=== PATIENT | male | born 1955 | race African-American/Black ===

== ENCOUNTER 2022-02-03 12:56 | Inpatient (IN) | payer BC ==
[~2022-02-03] VITALS: Ht 188 cm; Wt 46.7 kg
[2022-02-03 13:04] VITALS: BP 138/76
[2022-02-03] MEDS ORDERED: PANTOPRAZOLE 40 MG INJ VIAL IVP ONE (13:25)
[2022-02-03] MEDS ORDERED: NACL 0.9% 250 ML IV ONE (13:25)
[2022-02-03] MEDS ORDERED: ONDANSETRON 4 MG/2 ML VIAL IVP ONE (13:25)
--- NOTE | 2022-02-03 13:52 | NUR ---
XRAY AT BEDSIDE
[2022-02-03] MEDS ORDERED: HYDROmorphone PFS 2 MG/ML SYR IVP ONE ×2 (14:00→15:15)
--- NOTE | 2022-02-03 14:00 | NUR ---
66/M DELIA FROM [facility]. PER EMS STAFF CALLED 911 STATING PATIENT HAD ONE EPISODE OF HEMATEMESIS. PATIENT STATES HE HAS HAD SIMILAR EPISODES IN THE PAST D/T HIS HX OF LUNG CANCER. PATIENT ALSO C/O 5/10 CP D/T CHRONIC COUGH, PER EMS PATIENT RECEIVED DILAUDID AT 1230 MANAGER BEVERAGE, PATIENT DENIES NAUSEA AT THIS TIME. PMH: LUNG CANCER, HTN, GERD NKA
[2022-02-03 14:15] LABS: BASOPHILS # (AUTO) 0.1 K/uL (0.00-0.22); BASOPHILS % (AUTO) 0.5 % (0.0-2.0); EOSINOPHILS # (AUTO) 0.1 K/uL (0-0.4); EOSINOPHILS % (AUTO) 0.6 % (0.0-4.0); HEMATOCRIT 34.5 % (36-52); HEMOGLOBIN 11.3 g/dL (12.0-18.0); LYMPHOCYTES # (AUTO) 1.6 K/uL (2.0-11.5); LYMPHOCYTES % (AUTO) 12.3 % (20.5-51.1); MEAN CORPUSCULAR HEMOGLOBIN 30 pg (27-31); MEAN CORPUSCULAR HGB CONC 33 g/dL (33-37); MEAN CORPUSCULAR VOLUME 91.3 fL (80-94); MONOCYTES # (AUTO) 1.5 K/uL (0.8-1.0); MONOCYTES % (AUTO) 11.8 % (1.7-9.3); NEUTROPHILS # (AUTO) 9.5 K/uL (1.8-7.7); NEUTROPHILS % (AUTO) 74.8 % (42.2-75.2); PLATELET COUNT (AUTO) 416 K/uL (140-450); RED BLOOD CELL COUNT(AUTO) 3.78 MIL/uL (4.20-6.10); RED CELL DISTRIBUTION WIDTH 14.1 % (11.6-13.7); WHITE BLOOD COUNT (AUTO) 12.8 K/uL (4.8-10.8)
[2022-02-03 14:28] LABS: PROTHROMBIN TIME 13.3 secs (10.8-13.4)
--- NOTE | 2022-02-03 14:38 | NUR ---
PT IN BED ASLEEP, HOB ELEVATED
[2022-02-03 14:44] LABS: ALBUMIN 2.8 g/dL (3.4-5.0); ANION GAP 10.8 (8-16); CARBON DIOXIDE 37.2 mmol/L (21-32); CREATININE 0.8 mg/dL (0.6-1.3); TOTAL BILIRUBIN 0.7 mg/dL (0.0-1.0)
[2022-02-03] MEDS ORDERED: PIPERACILLIN/TAZOBACTAM 3.375 GM in DEXTROSE 5% 50 ML IV ONE (15:20)
[2022-02-03] MEDS ORDERED: NACL 0.9% 1,200 ML IV ONE (15:20)
[2022-02-03] MEDS ORDERED: VANCOMYCIN 1,000 MG in DEXTROSE 5% 250 ML IV ONE (15:20)
[2022-02-03] MEDS ORDERED: PIPERACILLIN/TAZOBACTAM 3.375 GM VIAL IV ONE (15:31)
[2022-02-03] MEDS ORDERED: VANCOMYCIN 1,000 MG VIAL ONE (15:31)
[2022-02-03] MEDS ORDERED: DEXA4TAB5 PO (16:49)
[2022-02-03] MEDS ORDERED: ZOLPIDEM 10 MG TAB PO PRN (16:55)
[2022-02-03] MEDS ORDERED: DOCUSATE SODIUM 100 MG GELCAP PO PRN (16:55)
[2022-02-03] MEDS ORDERED: ACETAMINOPHEN 325 MG TAB PO PRN (16:55)
[2022-02-03] MEDS ORDERED: ONDANSETRON 4 MG/2 ML VIAL IVP PRN (16:55)
[2022-02-03] MEDS ORDERED: DOCU-299 PO (17:08)
[2022-02-03] MEDS ORDERED: ACET-2619 PO (17:08)
[2022-02-03] MEDS ORDERED: LOSA100T1 PO (17:08)
[2022-02-03] MEDS ORDERED: HYDR-3004 PO (17:08)
[2022-02-03] MEDS ORDERED: CARV6.25 PO (17:08)
[2022-02-03] MEDS ORDERED: LACT500C2 PO (17:08)
[2022-02-03] MEDS ORDERED: CLON0.1T16 PO (17:08)
[2022-02-03] MEDS ORDERED: PANT40EC PO (17:08)
[2022-02-03] MEDS ORDERED: ACET-5636 PO (17:08)
[2022-02-03] MEDS ORDERED: MAGN400S60 PO (17:08)
[2022-02-03] MEDS ORDERED: PROM118S5 PO (17:08)
[2022-02-03] MEDS ORDERED: HYDR-1098 PO (17:08)
[2022-02-03] MEDS ORDERED: HYDR2TAB6 PO (17:08)
[2022-02-03] MEDS ORDERED: BISA-218 RC (17:08)
[2022-02-03] MEDS: POTASSIUM CHLORIDE 10 MEQ TABER PO PRN (18:18)
[2022-02-03] MEDS: LORazepam 2 MG/ML VIAL IVP PRN (18:19)
--- NOTE | 2022-02-03 19:14 | NUR ---
DR LIGHT AT BEDSIDE
--- NOTE | 2022-02-03 19:30 | NUR ---
Pt report given to ALBERTO BANDA. Transfer of care at this time.
[2022-02-03] MEDS: PIPERACILLIN/TAZOBACTAM 3.375 GM in DEXTROSE 5% 50 ML IV SCH (21:00)
--- NOTE | 2022-02-04 01:22 | NUR ---
Patient will be admitted to care of Dr. Seaman. Admited to TELE. Will go to room 124A. Belongings list completed. Report to SOLO Saleem.
--- NOTE | 2022-02-04 01:30 | NUR ---
RECEIVED PT FROM ER/ [facility] AAOX 1 TO 2 , NID ,W/ O2 AT 2LPM/NC - O2 SAT 96 % , IV SITES INTACT AND PATENT , TRANSFER TO BED THRU MANUAL LIFT , ON TELE MONITOR - ST , , AFEBRILE , PT WEARING DIAPER , BUT HE CAN ABLE TO PEE ON URINAL WHEN URINAL OFFERRED AND ASSISTED . ADMISSION ASSESSMENT DONE , PLAN OF CARE DISCUSSED BUT POOR UNDERSTANDING DUE TO MENTAL STATUS . FALL RISK - PUT PT ON FALL PREVENTION PROTOCOL - CALL LIGHT WITHIN REACH . BED ALARM ON , WILL CONT. TO MONITOR .
[2022-02-04 01:50] VITALS: BP 110/54
--- NOTE | 2022-02-04 02:00 | NUR ---
SLEEPING , O2 SAT WNL
--- NOTE | 2022-02-04 02:16 | NUR ---
PT WAS TRANSFERRED TO TELE ROM 124A, STABLE VSS/ CONFUSED, NO ACTIVE BLEEDING AND NO HEMATEMESIS.
[2022-02-04 03:34] LABS: APPEARANCE,URINE SL CLOUDY (CLEAR); BILIRUBIN,URINE NEGATIVE (NEGATIVE); BLOOD, URINE TRACE-L (NEGATIVE); COLOR,URINE YELLOW (YELLOW); LEUKOCYTE ESTERASE ,URINE TRACE (NEGATIVE); NITRITE, URINE POSITIVE (NEGATIVE); UGLUCOSE NEGATIVE (NEGATIVE)
[2022-02-04 03:58] LABS: BARBITURATE, URINE NEGATIVE ng/ml (NEG <=200); BENZODIAZEPINE, URINE POSITIVE ng/mL (NEG <=200); CANNABINOID, URINE NEGATIVE ng/mL (NEG <=50); COCAINE, URINE NEGATIVE ng/mL (NEG <=300)
[2022-02-04 04:00] VITALS: BP 113/60
[2022-02-04 04:00] LABS: OPIATE, URINE POSITIVE ng/mL (NEG <=2000); PHENCYCLIDINE SCREEN,URINE NEGATIVE ng/mL (NEG <=25)
--- NOTE | 2022-02-04 04:00 | NUR ---
ROUNDS , NO S/SX OF ACUTE DISTRES NOTED
--- NOTE | 2022-02-04 06:00 | NUR ---
AWAKE , NO S/SX OF ACUTE DISTRESS NOTED
[2022-02-04] MEDS ORDERED: PIPERACILLIN/TAZOBACTAM 3.375 GM VIAL IV ONE (06:12)
[2022-02-04] MEDS: PIPERACILLIN/TAZOBACTAM 3.375 GM in DEXTROSE 5% 50 ML IV SCH ×3 (06:50→21:00)
--- NOTE | 2022-02-04 07:00 | NUR ---
RELAYED URINALYSIS RSULT TO DR. LIGHT - PT - NPO - VERIFIED NPO TO DR. MEDRANO , PER DR. LIGHT INFORM DR. ARANDA ABOUT THE REFERRAL . I ENDORSED TO TRISTEN DON'T FORGET TO PAGE DR. ARANDA - TRISTEN , RN VERBALIZES UNDERSTANDING .
[2022-02-04 07:28] LABS: ANION GAP 9.8 (8-16); CARBON DIOXIDE 35.1 mmol/L (21-32); CREATININE 0.7 mg/dL (0.6-1.3)
--- NOTE | 2022-02-04 07:28 | NUR ---
ENDORSED - PT - STABLE . NPO , BED ALARM ON
--- NOTE | 2022-02-04 07:28 | NUR ---
RECEIVED BEDSIDE REPORT FROM SONIA MEAD RN FOR CONTINUITY OF CARE. PT LYING IN THE BED, AAOX2, FORGETFUL. ON 2L NC, NO S/S RESPIRATORY DISTRESS. ST ON TELEMONITOR HR 110. PERIPHERAL IVS TO L AC 20G, AND L H 20G, SALINE LOCK, PATENT, INTACT. BOWEL SOUNDS ACTIVE LAST BM TODAY AM. INCONTINENT OF BOWEL SOMETIMES BLADDER, USES URINAL AT BEDSIDE SOMETIMES. GENERALIZED WEAKNESS TO BUE BLE. SKIN INTACT. SAFETY PRECAUTIONS MET. ON STANDARD ISOLATION. CALL LIGTH WITHIN REACH. INITIAL ASSESSMENT COMPLETE, WILL CONTINUE TO MONITOR.
[2022-02-04 07:29] LABS: HEMATOCRIT 31.2 % (36-52); HEMOGLOBIN 10.3 g/dL (12.0-18.0); MEAN CORPUSCULAR HEMOGLOBIN 30 pg (27-31); MEAN CORPUSCULAR HGB CONC 33 g/dL (33-37); MEAN CORPUSCULAR VOLUME 90.4 fL (80-94); PLATELET COUNT (AUTO) 416 K/uL (140-450); RED BLOOD CELL COUNT(AUTO) 3.45 MIL/uL (4.20-6.10); WHITE BLOOD COUNT (AUTO) 17.1 K/uL (4.8-10.8)
[2022-02-04 07:58] LABS: POTASSIUM 2.9 mmol/L (3.5-5.1)
[2022-02-04 08:00] VITALS: BP 114/55
[2022-02-04] MEDS ORDERED: VANCOMYCIN PER PHARMACY MC PRN (08:25)
[2022-02-04 08:53] LABS: OTHER CASTS, URINE None Seen /LPF (None Seen)
[2022-02-04] MEDS: MAG SULF 2000 MG/WATER PREMIX 50 ML IV PRN (09:12)
[2022-02-04] MEDS: SENNA 8.6 MG TAB PO SCH ×3 (09:13→16:38)
[2022-02-04] MEDS: PANTOPRAZOLE 40 MG INJ VIAL IVP SCH (09:13)
[2022-02-04] MEDS ORDERED: POTASSIUM CHLORIDE 40 MEQ, LIDOCAINE MPF 1% 25 MG in NACL 0.9% 250 ML IV SCH (10:00)
[2022-02-04 10:07] LABS: LYMPHOCYTES % (MANUAL) 5 % (20-46); MONOCYTES % (MANUAL) 12 % (5-12)
[2022-02-04 12:00] VITALS: BP 130/61
[2022-02-04] MEDS: MORPHINE SULFATE 2 MG/ML SYR IVP PRN (13:02)
--- NOTE | 2022-02-04 13:22 | NUR ---
PATIENT HAS BEEN SCREENED AND CATEGORIZED LOW NUTRITION RISK. PATIENT WILL BE SEEN WITHIN 7 DAYS OF ADMISSION. 02/10/22 PT WEIGHT [address] VISIT, BMI 21.8 KG/M2 (APPROPRIATE) PELON HO RD Addendum: 02/06/22 at [address] FNS CONSULT HAS BEEN RECEIVED FOR DIET EDUCATION; NOT APPLICABLE PELON HO RD
--- NOTE | 2022-02-04 14:55 | NUR ---
CALLED DR. LIGHT AT [facility] [phone]; PMHX: LUNG CA, THYROID CA, HTN; Davi HIDALGO RCP CALLED TO BEDSIDE; PATIENT PRESENTING WITH INCREASED SOB BREATH SOUNDS EXPIRATORY WHEEZE BILATERAL; RR 18-20; SUPPLEMENTAL OXYGEN AT 2LPM VIA NC SATURATION 97% TORBO DR. LIGHT: DUONEB Q6PRN FOR SOB/WHEEZE
[2022-02-04] MEDS ORDERED: ALBUTEROL SULFATE/IPRATROPIU 3 ML SOL IH ONE (15:15)
[2022-02-04 16:00] VITALS: BP 124/70
[2022-02-04] MEDS: VANCOMYCIN 1,000 MG in DEXTROSE 5% 250 ML IV SCH (16:38)
[2022-02-04] MEDS: METOCLOPRAMIDE 10 MG/2 ML INJ VIAL IVP SCH (16:38)
--- NOTE | 2022-02-04 19:23 | NUR ---
ENDORSED BEDSIDE REPORT TO FER MEAD RN FOR CONTINUITY OF CARE. VSS PT IN NO NACUTE DISTRESS. ALL QUESTIONS ANSWERED.
[2022-02-04 20:00] VITALS: BP 111/60
[2022-02-04] MEDS: LACTULOSE 20 GM/30 ML UDC PO SCH (21:00)
[2022-02-05] VITALS: BP 110/62
[2022-02-05] MEDS: MORPHINE SULFATE 2 MG/ML SYR IVP PRN ×3 (00:05→13:37)
--- NOTE | 2022-02-05 00:21 | NUR ---
PATIENT AWAKE ALERT SOMETIMES CONFUSE ON MONITOR SINUS TACH HEART RATE 108 HAS IV SITE IN LEFT HAND 22GA AND 20 GA IN AC OF LEFT ARM. TEMP 98.6 PATIENT NPO POST MID NITE PATIENT C/O OF PAIN GENERAL MEDICATED WITH MORPHINE 2 MG [address]P. PATIENT FOR CT-SCAN WITH CONTRAST IN MORNING EGD. NO OTHER C/O NOTED. AT THIS TIME.
[2022-02-05] MEDS: LORazepam 2 MG/ML VIAL IVP PRN ×3 (03:16→21:20)
[2022-02-05 04:00] VITALS: BP 115/64
[2022-02-05] MEDS: PIPERACILLIN/TAZOBACTAM 3.375 GM in DEXTROSE 5% 50 ML IV SCH ×3 (05:20→20:34)
[2022-02-05 05:55] LABS: BASOPHILS % (AUTO) 0.2 % (0.0-2.0); EOSINOPHILS % (AUTO) 0.2 % (0.0-4.0); HEMATOCRIT 29.3 % (36-52); HEMOGLOBIN 9.9 g/dL (12.0-18.0); LYMPHOCYTES # (AUTO) 1.3 K/uL (2.0-11.5); LYMPHOCYTES % (AUTO) 7.7 % (20.5-51.1); MEAN CORPUSCULAR HEMOGLOBIN 30 pg (27-31); MEAN CORPUSCULAR HGB CONC 34 g/dL (33-37); MEAN CORPUSCULAR VOLUME 89.5 fL (80-94); MONOCYTES # (AUTO) 2.3 K/uL (0.8-1.0); NEUTROPHILS # (AUTO) 13.7 K/uL (1.8-7.7); NEUTROPHILS % (AUTO) 78.9 % (42.2-75.2); PLATELET COUNT (AUTO) 390 K/uL (140-450); RED BLOOD CELL COUNT(AUTO) 3.28 MIL/uL (4.20-6.10); RED CELL DISTRIBUTION WIDTH 14.1 % (11.6-13.7); WHITE BLOOD COUNT (AUTO) 17.4 K/uL (4.8-10.8)
[2022-02-05 05:56] LABS: ANION GAP 9.7 (8-16); CARBON DIOXIDE 34.2 mmol/L (21-32); CREATININE 0.9 mg/dL (0.6-1.3)
[2022-02-05 06:30] LABS: POTASSIUM 2.9 mmol/L (3.5-5.1)
[2022-02-05 08:00] VITALS: BP 134/65
--- NOTE | 2022-02-05 08:00 | NUR ---
RECEIVE ENDORSEMENT FROM PM SHIFT WHILE PATIENT REST IN BED, NPO FOR G-TUBE SITE INFECTION, BED BOUND, PIV INFUSING LR W. 20 MEQ KCL @80ML/HR. WILL CONTINUE TO MONITOR Addendum: 02/05/22 at 1038 by Princess Arguello RN WRONG PATIENT RECEIVE ENDORSEMENT FROM PM SHIFT WHILE PATIENT REST IN BED, FULL LIQUID DIET, 2 LITER VIA NC FOR GI BLEED, BED BOUND, PIV LAC SALINE LOCK. WAITING FOR ABDOMEN CT & EGD TO BE DONE. WILL CONTINUE TO MONITOR
[2022-02-05] MEDS: METOCLOPRAMIDE 10 MG/2 ML INJ VIAL IVP SCH ×2 (08:32→11:52)
[2022-02-05] MEDS: PANTOPRAZOLE 40 MG INJ VIAL IVP SCH (08:36)
[2022-02-05] MEDS: SENNA 8.6 MG TAB PO SCH ×3 (08:40→20:34)
[2022-02-05] MEDS: POTASSIUM CHLORIDE 10 MEQ TABER PO PRN (08:40)
[2022-02-05] MEDS: LACTULOSE 20 GM/30 ML UDC PO SCH (08:41)
[2022-02-05] MEDS: MAG SULF 2000 MG/WATER PREMIX 50 ML IV PRN (08:42)
[2022-02-05 12:00] VITALS: BP 137/59
[2022-02-05 16:00] VITALS: BP 133/73
[2022-02-05] MEDS: VANCOMYCIN 1,000 MG in DEXTROSE 5% 250 ML IV SCH (17:01)
--- NOTE | 2022-02-05 19:27 | NUR ---
ENDORSE PATIENT TO PM SHIFT WHILE PATIENT RESTING IN BED, NPO EXCEPT MEDS DIET, 2 LITER VIA NC FOR GI BLEED, SEPTIC UTI, BED BOUND, PIV LAC SALINE LOCK. ABDOMEN CT W/ CONTRAST CANCELLED. MAYBE EGD STILL ON SCHEDULE.
[2022-02-05 20:00] VITALS: BP 137/70
--- NOTE | 2022-02-05 22:47 | NUR ---
PATIENT LETHARGIC ASK FOR ATIVAN GIVEN 2 MG IVP TEMP 98.3 NO C/O AT THIS TIME PUT NEW IV IN LEFT HAND 20GA. NO NEW DISTRESS NOTED.
[2022-02-06] VITALS: BP 128/68
[2022-02-06 04:00] VITALS: BP 125/68
[2022-02-06] MEDS: LORazepam 2 MG/ML VIAL IVP PRN (05:00)
[2022-02-06] MEDS: PIPERACILLIN/TAZOBACTAM 3.375 GM in DEXTROSE 5% 50 ML IV SCH ×2 (05:25→21:56)
[2022-02-06 06:55] LABS: BASOPHILS # (AUTO) 0.1 K/uL (0.00-0.22); BASOPHILS % (AUTO) 0.6 % (0.0-2.0); EOSINOPHILS # (AUTO) 0.1 K/uL (0-0.4); EOSINOPHILS % (AUTO) 0.3 % (0.0-4.0); HEMATOCRIT 31.9 % (36-52); HEMOGLOBIN 10.4 g/dL (12.0-18.0); LYMPHOCYTES # (AUTO) 1.2 K/uL (2.0-11.5); MEAN CORPUSCULAR HEMOGLOBIN 30 pg (27-31); MEAN CORPUSCULAR HGB CONC 33 g/dL (33-37); MEAN CORPUSCULAR VOLUME 90.5 fL (80-94); MONOCYTES # (AUTO) 2.3 K/uL (0.8-1.0); MONOCYTES % (AUTO) 13.4 % (1.7-9.3); NEUTROPHILS # (AUTO) 13.6 K/uL (1.8-7.7); NEUTROPHILS % (AUTO) 78.7 % (42.2-75.2); PLATELET COUNT (AUTO) 402 K/uL (140-450); RED BLOOD CELL COUNT(AUTO) 3.53 MIL/uL (4.20-6.10); RED CELL DISTRIBUTION WIDTH 14.4 % (11.6-13.7); WHITE BLOOD COUNT (AUTO) 17.3 K/uL (4.8-10.8)
[2022-02-06 07:06] LABS: ANION GAP 12.7 (8-16); CARBON DIOXIDE 33.2 mmol/L (21-32); CREATININE 1.1 mg/dL (0.6-1.3)
[2022-02-06 08:00] VITALS: BP 141/74
[2022-02-06 08:04] LABS: POTASSIUM 2.9 mmol/L (3.5-5.1)
[2022-02-06] MEDS: ALBUTEROL SULFATE/IPRATROPIU 3 ML SOL IH PRN ×2 (08:11→15:02)
[2022-02-06] MEDS: PANTOPRAZOLE 40 MG INJ VIAL IVP SCH (09:01)
[2022-02-06] MEDS: POTASSIUM CHLORIDE 10 MEQ TABER PO PRN (09:02)
[2022-02-06] MEDS ORDERED: diphenhydrAMINE 50 MG/ML VIAL ONE (10:45)
[2022-02-06] MEDS ORDERED: fentaNYL citrate 0.05 MG/ML VIAL ONE ×2 (10:45→10:46)
[2022-02-06] MEDS ORDERED: MIDAZOLAM 5 MG/5 ML VIAL ONE (10:45)
--- NOTE | 2022-02-06 11:56 | NUR ---
PATIENT RETURN FROM EGD PROCEDURE WITH NO ACUTE DISTRESS. PER OR NURSE THAT VERSED GIVEN TWO TWICE, FENTANYL 37.5 GIVEN. ABRIL HAS NORMAL EGD PER OR NURSE. WILL CONTINUE TO MONITOR.
[2022-02-06] MEDS ORDERED: fentaNYL citrate 0.05 MG/ML VIAL IVP ONE (12:30)
[2022-02-06] MEDS ORDERED: MIDAZOLAM 2 MG/2 ML VIAL IVP ONE (12:30)
--- NOTE | 2022-02-06 13:24 | NUR ---
LOC SLIGHTLY ALTERED WITH MINIMAL VERBAL RESPONSE TOPOLOGY PROFESSOR AWARE OF EGD WITH SEDATION GIVEN INCREASED SOB AT 28 BPM BREATH SOUNDS DIMINISHED RIGHT SIDE DECREASED LEFT SIDE SUPPLEMENTAL OXYGEN AT 2 LPM VIA NC SATURATION 97% Addendum: 02/06/22 at 1507 by Jonas Garcia RT TOPOLOGY PROFESSOR TO DRAW ABG TO REVIEW PH, PCO2, PO2,HcO3
--- NOTE | 2022-02-06 15:55 | NUR ---
DC PLANNING OUTREACHED TO [facility] TO GATHER COLLATERAL INFORMATION, ADMIN UNAVAILABLE TO SPEAK. LEFT CONTACT INFO WITH REAMING MACHINE OPERATOR WHO REPORTS SHE WILL PROVIDE TO ADMIN. SW TO FOLLOW Addendum: 02/07/22 at 1619 by Rosalia Garcia SS ATTEMPTED TO REACH PT'S EMERGENCY CONTACT, SANDI, TO GATHER COLLATERAL INFORMATION, HOWEVER, NO ANSWER. SW TO FOLLOW UP
[2022-02-06 16:00] VITALS: BP 138/71
--- NOTE | 2022-02-06 16:14 | NUR ---
PT. WITH LOW MARGIE SCALE AT MODERATE TO HIGH RISK, CONTINUE TO FOLLOW PRESSURE INJURY PREVENTION INTERVENTIONS. -POSITIONING: TURN AND REPOSITION PATIENT Q 2H OR SOONER USE PILLOWS TO KEEP BONY PROMINENCES FROM DIRECT CONTACT WITH SURFACES USE REPOSITIONING WEDGES TO PROVIDE 30-DEGREE ANGLE FOR SIDE LYING POSITIONS OFFLOADING OR FOAM DRESSING TO ALL TUBING TO PREVENT MEDICAL DEVICES RELATED PRESSURE INJURY -RE-EVALUATING AND MANAGING INCONTINENCE MONITOR SKIN CONDITION DURING POSITION CHANGE DO NOT MASSAGE REDNESS, BONY PROMINENCES FREQUENT JAMAAL-CARE AND PROVIDE BARRIER CREAMS PRN IF SOILING MOISTURE CONTROL BY OFFER BED MARTIN/URINAL /ABSORBENT PAD TO WICK AND HOLD MOISTURE KEEP SKIN DRY AND PROTECT FROM FRICTION -MANAGE FRICTION/SHEAR/MOBILITY KEEP HOB AT THE LOWEST LEVEL OF ELEVATION NO MORE THAN 30 DEGREE UNLESS OTHERWISE CONTRAINDICATED USE LIFT SHEET OR TRANSFER DEVICE TO MOVE PATIENT AND PREVENT LATERAL SHEER. PROTECT HEELS, ELBOWS BONY PROMINENCES WITH SKIN BERRIES OR FOAM DRESSING IF EXPOSED TO FRICTION OFFLOAD BILATERAL HEELS BY PLACING PILLOWS UNDER CALVES AT ALL TIMES, UNLESS OTHERWISE CONTRAINDICATED -PRESSURE REDISTRIBUTION SURFACE THERAPY KVNG ISOFLEX MATTRESS -NUTRITION: PLEASE FOLLOW RD RECOMMENDATIONS AND OFFER NUTRITION SUPPLEMENTS IF ORDERED. PLEASE CONTACT WOUND CARE NURSE FOR ANY QUESTION AND CHANGE OF WOUND CONDITION
[2022-02-06] MEDS: MORPHINE SULFATE 2 MG/ML SYR IVP PRN (17:05)
--- NOTE | 2022-02-06 19:26 | NUR ---
ENDORSE PATIENT TO PM SHIFT WHILE PATIENT RESTING IN BED, BOOKSTORE MANAGER SOFT W/ GROUND MEAT DIET, 2 LITER VIA NC FOR GI BLEED, SEPSIS, UTI DIAGNOSIS, PIV LAC & L. WRIST SALINE LOCK. EGD & ST EVALUATION DONE
[2022-02-06 20:00] VITALS: BP 143/67
[2022-02-06] MEDS: SENNA 8.6 MG TAB PO SCH (21:56)
[2022-02-07] VITALS: BP 122/64
[2022-02-07] MEDS: MORPHINE SULFATE 2 MG/ML SYR IVP PRN ×4 (01:01→20:16)
--- NOTE | 2022-02-07 01:01 | NUR ---
PT COMPLAINTS OF PAIN ON NECK AND SHOULDER 10/28. PAIN MED MORPHINE ADMINISTERED ORDERED.
[2022-02-07] MEDS: PIPERACILLIN/TAZOBACTAM 3.375 GM in DEXTROSE 5% 50 ML IV SCH ×3 (05:00→20:15)
--- NOTE | 2022-02-07 07:45 | NUR ---
RECEIVED PT FROM NIGHT RN, PT IS AWAKE, LYING ON THER BED WITH O2 3L NC IN PLACE, SIDE RAILS ARE UP AND CALL LIGHT WITHIN REACH, PT HAS AN IV LINES ON THE LEFT AC G. 20 ON SALINE LOCK AND ON THE LEFT HAND G. 20 ON SALINE LOCK, NO SIGN OF DISTRESS NOTED AND WILL CONTINUE TO MONITOR PT.
[2022-02-07 08:00] VITALS: BP 143/63
[2022-02-07 09:10] LABS: BASOPHILS % (AUTO) 0.3 % (0.0-2.0); EOSINOPHILS # (AUTO) 0.1 K/uL (0-0.4); EOSINOPHILS % (AUTO) 0.4 % (0.0-4.0); HEMATOCRIT 32.5 % (36-52); HEMOGLOBIN 10.4 g/dL (12.0-18.0); LYMPHOCYTES # (AUTO) 1.3 K/uL (2.0-11.5); LYMPHOCYTES % (AUTO) 7.8 % (20.5-51.1); MEAN CORPUSCULAR HEMOGLOBIN 29 pg (27-31); MEAN CORPUSCULAR HGB CONC 32 g/dL (33-37); MEAN CORPUSCULAR VOLUME 90.4 fL (80-94); MONOCYTES # (AUTO) 2.5 K/uL (0.8-1.0); MONOCYTES % (AUTO) 15.3 % (1.7-9.3); NEUTROPHILS # (AUTO) 12.2 K/uL (1.8-7.7); NEUTROPHILS % (AUTO) 76.2 % (42.2-75.2); PLATELET COUNT (AUTO) 414 K/uL (140-450); RED BLOOD CELL COUNT(AUTO) 3.59 MIL/uL (4.20-6.10); RED CELL DISTRIBUTION WIDTH 14.1 % (11.6-13.7); WHITE BLOOD COUNT (AUTO) 16.1 K/uL (4.8-10.8)
--- NOTE | 2022-02-07 09:30 | NUR ---
RT NOTES RT WAS CALLED BY RN STATING PATIENT WAS DESATURATED. RT ARRIVED AT BEDSIDE RN NOT THERE BUT PT HAD NO SIGN OF DISTRESS SATING 98%. CALLED RN TO LET HER KNOW. WILL CONTINUE TO MONITOR.
[2022-02-07 09:58] LABS: ANION GAP 12.2 (8-16); CARBON DIOXIDE 33.7 mmol/L (21-32); CREATININE 0.9 mg/dL (0.6-1.3)
[2022-02-07 10:55] LABS: POTASSIUM 2.9 mmol/L (3.5-5.1)
[2022-02-07 12:00] VITALS: BP 121/68
[2022-02-07] MEDS ORDERED: INSULIN LISPRO SLIDING SCALE 100 UNITS/ML VIAL SUBQ PRN (12:15)
[2022-02-07] MEDS ORDERED: DEXTROSE 50% 50 ML SYR IVP PRN (12:15)
[2022-02-07] MEDS ORDERED: POTASSIUM CHLORIDE 40 MEQ, LIDOCAINE MPF 1% 25 MG in NACL 0.9% 250 ML IV ONE (13:00)
--- NOTE | 2022-02-07 13:20 | NUR ---
PT WAS CLEANED AND REPOSITIONED NOW, IVPB MEDICATION WAS ALSO GIVEN
--- NOTE | 2022-02-07 13:49 | NUR ---
PT WAS GIVEN 40MEQ POTASSIUM CHLORIDE IV FOR POTASSIUM LEVEL OF 2.9
[2022-02-07 16:00] VITALS: BP 144/70
--- NOTE | 2022-02-07 16:21 | NUR ---
DC PLANNING: DR SHAZIA LUND ORDERED HOSPICE. CALLED PATIENT'S SISTER [phone] SPOKE WITH SANDI STATED DR MCCRAY DISCUSSED WITH HER AND ACCEPT THE RECOMMENDATION FOR HOSPICE. PER SANDI OK WITH ANY HOSPICE. FAXED ALL PAPERWORK TO [facility] AND [facility]. CM TO FOLLOW Addendum: 02/08/22 at 1502 by Celine Tang RN DC PLANNING: RECEIVED A CALL FROM [facility] SPOKE WITH TRINH STATED PATIENT IS GOING BACK TO [facility] WITH HOSPICE. TRANSPORT ARRANGED BY [facility] TIME BETWEEN 4-5PM NOTIFIED AVEL BANDA. CM TO FOLLOW
[2022-02-07] MEDS: BLOOD GLUCOSE MONITORING 1 DEV DEV FS SCH ×2 (17:10→20:39)
--- NOTE | 2022-02-07 18:04 | NUR ---
P.T. NOTES P.T. EVAL COMPLETED; REFER TO EVAL FOR DETAILS.
--- NOTE | 2022-02-07 19:33 | NUR ---
ENDORSED PT TO NIGHT RN FOR CONTINUITY OF CARE, PT IS STABLE AT THIS TIME.
--- NOTE | 2022-02-07 19:34 | NUR ---
RECEIVED PT TO MORNING SHIFT NURSE. PT IS AOX2, BEDBOUND, AND ABLE TO VERBALIZE NEEDS. PT IS ON 3L NC AND ON MECH. SOFT CARDIAC DIET. PT HAS SALINE LOCK ON LEFT AC GAUGE 20 AND LEFT HAND GAUGE 20. PT SKIN IS INTACT. ALL SAFETY MEASURES IMPLEMENTED. BED WHEELS ON LOCKED, BED IN LOW POSITION AND CALL LIGHT WITHIN REACH.
[2022-02-07 20:00] VITALS: BP 126/67
--- NOTE | 2022-02-07 21:19 | NUR ---
ALL SCHEDULED AND PRESCRIBED MEDICATION AND PRN PAIN MEDICATION WAS GIVEN TO PT PER MD ORDER. PT TOLERATED IT WELL. ALL SAFETY MEASURES IMPLEMENTED. BED WHEELS ON LOCKED, BED IN LOW POSITION AND CALL LIGHT WITHIN REACH.
--- NOTE | 2022-02-07 22:00 | NUR ---
PRN SLEEPING MEDICATION WAS GIVEN TO PT PER PT REQUEST. PT TOLERATED IT WELL. ALL SAFETY MEASURES IMPLEMENTED. BED WHEELS ON LOCKED, BED IN LOW POSITION AND CALL LIGHT WITHIN REACH.
[2022-02-08] VITALS: BP 129/65
--- NOTE | 2022-02-08 | NUR ---
PT IS SLEEPING. CHEST RISE AND FALL SYMMETRICALLY NOTED. RESPIRATION IS LILIAM AND UNLABORED SATING WITH PULSO OF 114 AND ST/PAC (ST DEPRESSION) RHYTHM. ALL SAFETY MEASURES IMPLEMENTED. BED WHEELS ON LOCK, BED IN LOW POSITION AND CALL LIGHT WITHIN REACH.
--- NOTE | 2022-02-08 02:04 | NUR ---
PRN ANTI-ANXIETY MEDICATION WAS TO PT PER MD ORDER. ALL SAFETY MEASURES IMPLEMENTED. BED WHEELS ON LOCK, BED IN LOW POSITION AND CALL LIGHT WITHIN REACH.
[2022-02-08 04:00] VITALS: BP 143/69
[2022-02-08] MEDS: PIPERACILLIN/TAZOBACTAM 3.375 GM in DEXTROSE 5% 50 ML IV SCH ×2 (04:16→13:55)
--- NOTE | 2022-02-08 04:16 | NUR ---
SCHEDULED AND PRESCRIBED MEDICATION WAS GIVEN TO PT PER MD ORDER. PT TOLERATED IT WELL. ALL SAFETY MEASURES IMPLEMENTED. BED WHEELS ON LOCKED, BED IN LOW POSITION AND CALL LIGHT WITHIN REACH.
[2022-02-08 05:44] LABS: BASOPHILS # (AUTO) 0.1 K/uL (0.00-0.22); BASOPHILS % (AUTO) 0.4 % (0.0-2.0); EOSINOPHILS # (AUTO) 0.1 K/uL (0-0.4); EOSINOPHILS % (AUTO) 0.3 % (0.0-4.0); HEMATOCRIT 29.9 % (36-52); HEMOGLOBIN 9.7 g/dL (12.0-18.0); LYMPHOCYTES % (AUTO) 6.5 % (20.5-51.1); MEAN CORPUSCULAR HEMOGLOBIN 30 pg (27-31); MEAN CORPUSCULAR HGB CONC 33 g/dL (33-37); MEAN CORPUSCULAR VOLUME 90.5 fL (80-94); MONOCYTES # (AUTO) 2.3 K/uL (0.8-1.0); MONOCYTES % (AUTO) 14.7 % (1.7-9.3); NEUTROPHILS # (AUTO) 11.9 K/uL (1.8-7.7); NEUTROPHILS % (AUTO) 78.1 % (42.2-75.2); PLATELET COUNT (AUTO) 407 K/uL (140-450); RED CELL DISTRIBUTION WIDTH 14.2 % (11.6-13.7); WHITE BLOOD COUNT (AUTO) 15.3 K/uL (4.8-10.8)
[2022-02-08 06:27] LABS: ANION GAP 13.2 (8-16); CREATININE 0.9 mg/dL (0.6-1.3); POTASSIUM 3.2 mmol/L (3.5-5.1)
[2022-02-08] MEDS: BLOOD GLUCOSE MONITORING 1 DEV DEV FS SCH ×2 (06:31→11:39)
--- NOTE | 2022-02-08 06:31 | NUR ---
PT BLOOD GLUCOSE IS 128, NO INSULIN COVERAGE NEEDED. ALL SAFETY MEASURES IMPLEMENTED. BED WHEELS ON LOCK, BED IN LOW POSITION AND CALL LIGHT WITHIN REACH.
[2022-02-08] MEDS: POTASSIUM CHLORIDE 10 MEQ TABER PO PRN (07:01)
--- NOTE | 2022-02-08 07:01 | NUR ---
PT POTASSIUM IS 3.2. K-DUR 40MEQ TAB WAS GIVEN TO THE PT PER MD ORDER. PT TOLERATED IT WELL. ALL SAFETY MEASURES IMPLEMENTED. BED WHEELS ON LOCK, BED IN LOW POSITION AND CALL LIGHT WITHIN REACH.
--- NOTE | 2022-02-08 07:37 | NUR ---
PT IS STABLE. ENDORSED PT TO MORNING SHIFT NURSE FOR CONTINUITY OF CARE.
--- NOTE | 2022-02-08 07:39 | NUR ---
RECEIVED REPORT FROM PATTERN STORAGE CLERK NURSE. PATIENT LYING DOWN IN BED SLEEPING, AROUSABLE BY VOICE. NO DISTRESS NOTED. WILL CONTINUE WITH CURRENT PLAN OF CARE.
[2022-02-08 08:00] VITALS: BP 139/76
--- NOTE | 2022-02-08 09:38 | NUR ---
PATIENT LYING DOWN IN BED WATCHING TV. NO DISTRESS NOTED. AAOX3. DENIES ANY PAIN. ON O2 3L/MIN VIA NC. IV SITE INTACT, PATENT, ON SALINE LOCK. REVIEWED PLAN OF CARE WITH PATIENT. VERBALIZED UNDERSTANDING, REINFORCEMENT NEEDED. SAFETY MEASURES IN PLACE, CALL LIGHT WITHIN REACH. WILL CONTINUE TO MONITOR.
[2022-02-08] MEDS: MORPHINE SULFATE 2 MG/ML SYR IVP PRN (11:03)
[2022-02-08 12:00] VITALS: BP 149/66
--- NOTE | 2022-02-08 12:30 | NUR ---
ADITHYA [phone] FROM [facility] CALLED AND GAVE HER A REPORT ON PATIENT. ANSWERED ALL HER QUESTIONS. PER ADITHYA, SHE WILL SCHEDULE A TRANSPORT AND CALL ME BACK WITH TIME. WILL CONTINUE TO MONITOR.
--- NOTE | 2022-02-08 13:56 | NUR ---
SCHEDULED MEDICATIONS DUE GIVEN. WILL CONTINUE TO MONITOR.
--- NOTE | 2022-02-08 15:50 | NUR ---
DISCHARGE INSTRUCTIONS PROVIDED TO PATIENT IN PREFERRED LANGUAGE OF CAMEROONIAN. VERBALIZED UNDERSTANDING, FORGETFUL. INSTRUCTIONS ON NEW/CHANGED MEDICATIONS, FOLLOW-UP AT HOME WITH [facility]. VERBALIZED UNDERSTANDING. FAMILY ALREADY AWARE BY [facility] PER ADITHYA (COORDINATOR). IV SITE REMOVED WITH MINIMAL BLOOD AND LUMEN COMPLETELY INTACT. ID BANDS REMOVED. TRANSPORTERS ALREADY HERE TO TAKE PATIENT. PATIENT DISCHARGED AT THIS TIME IN STABLE CONDITION TO HOME HOSPICE.
== END 2022-02-08 15:50 | disposition hospice, home (50) | DRG 871 ==
LOC: MED 12:56 → MTU 16:53
PROVIDERS: ADMIT Family Medicine; ATTEND Family Medicine
PROC: 0DJ08ZZ Inspection of Upper Intestinal Tract, Via Natural or Artificial Opening Endoscopic (ICD-10-PCS; principal; 2022-02-06 11:00)
DX: A41.9 Sepsis, unspecified organism (principal); G93.41 Metabolic encephalopathy; J69.0 Pneumonitis due to inhalation of food and vomit; E44.0 Moderate protein-calorie malnutrition; K92.2 Gastrointestinal hemorrhage, unspecified; N39.0 Urinary tract infection, site not specified; Z68.1 Body mass index [BMI] 19.9 or less, adult; K56.0 Paralytic ileus; D63.8 Anemia in other chronic diseases classified elsewhere; I10 Essential (primary) hypertension; G89.29 Other chronic pain; K21.9 Gastro-esophageal reflux disease without esophagitis; E87.6 Hypokalemia; E87.8 Other disorders of electrolyte and fluid balance, not elsewhere classified; R74.01 Elevation of levels of liver transaminase levels; E11.9 Type 2 diabetes mellitus without complications; Z20.822 Contact with and (suspected) exposure to COVID-19; Z87.891 Personal history of nicotine dependence; Z85.850 Personal history of malignant neoplasm of thyroid; Z85.118 Personal history of other malignant neoplasm of bronchus and lung; Z79.891 Long term (current) use of opiate analgesic; Z79.899 Other long term (current) drug therapy
CPT/HCPCS: 36415; 36600; 71045; 71250; 74018; 74150; 76700; 80048; 80053; 80305; 81001; 82140; 82550; 82553; 82803; 82948; 83605; 83735; 83874; 83880; 84484; 85025; 85379; 85610; 85730; 86886; 86900; 86901; 87040; 87081; 87086; 92526; 93005; 94640; 96361; 96365; 96368; 96375; 97110; 97112; 97530; 99285; C9113; J1170; J1200; J2001; J2060; J2250; J2270; J2405; J2543; J2765; J3010; J3370; J3475; J3480; J7030; J7060; Q0092